=== PATIENT | female | born 1995 | race Caucasian/White ===

== ENCOUNTER 2019-08-19 13:29 | Emergency (ER) | payer MEDICAID, OTHER, SELFPAY ==
[~2019-08-19] VITALS: Ht 162.6 cm; Wt 102.7 kg
[2019-08-19] MEDS ORDERED: SODIUM CHLORIDE 0.9% 1,000 ML IV ONE (13:56)
[2019-08-19] MEDS ORDERED: SODIUM CHLORIDE FLUSH 10ML SYR IVF ONE (14:00)
[2019-08-19] MEDS ORDERED: ONDANSETRON 2MG/ML, 2ML IVPush ONE (14:00)
[2019-08-19] MEDS ORDERED: MAALOX/HYOSCYAMINE/LIDOCAINE 45 ML BTL PO ONE (14:00)
[2019-08-19] MEDS ORDERED: SODIUM CHLORIDE 0.9% 1,000ML IVBOLUS ONE (14:00)
[2019-08-19] MEDS ORDERED: ONDANSETRON 2MG/ML, 2ML ONE (14:09)
[2019-08-19] MEDS ORDERED: MAALOX/HYOSCYAMINE/LIDOCAINE 45 ML BTL ONE (14:09)
[2019-08-19 14:14] LABS: PH, VENOUS 7.383 pH (7.320-7.420)
[2019-08-19 14:17] LABS: BASOPHILS # (AUTO) 0.03 x10^3/uL (0-0.1); BASOPHILS % (AUTO) 0 % (0-1); EOSINOPHILS # (AUTO) 0.11 x10^3/uL (0-0.4); EOSINOPHILS % (AUTO) 1 % (1-7); LYMPHOCYTES # (AUTO) 1.65 x10^3/uL (1-3.4); LYMPHOCYTES % (AUTO) 16 % (22-44); MD NO; MEAN CORPUSCULAR HEMOGLOBIN 30.5 pg (27.0-34.8); MEAN CORPUSCULAR HGB CONC 33.5 g/dL (32.4-35.8); MEAN CORPUSCULAR VOLUME 91.3 fL (80-100); MEAN PLATELET VOLUME 7.8 fL (7.4-10.4); MONOCYTES # (AUTO) 0.43 x10^3/uL (0.2-0.8); MONOCYTES % (AUTO) 4 % (2-9); NEUTROPHILS # (AUTO) 8.17 x10^3/uL (1.8-6.8); NEUTROPHILS % (AUTO) 79 % (42-75); PLATELET COUNT 337 x10^3/uL (130-400); RED BLOOD COUNT 5.36 x10^6/uL (3.82-5.3); RED CELL DISTRIBUTION WIDTH 13.2 % (9.6-15.2)
[2019-08-19 14:26] LABS: ALBUMIN 3.7 g/dL (3.4-5.0); ANION GAP 14 mmol/L (5-15); CALCIUM 9.5 mg/dL (8.5-10.1); CHLORIDE 103 mmol/L (98-107)
[2019-08-19 14:32] LABS: ALANINE AMINOTRANSFERASE 17 U/L (12-78); ALKALINE PHOSPHATASE 103 U/L (45-117); CREATININE 1.26 mg/dL (0.55-1.02); TOTAL PROTEIN 7.9 g/dL (6.4-8.2)
[2019-08-19 14:35] LABS: MICROSCOPIC NOT IND
[2019-08-19 14:43] LABS: ACETONE, SERUM Large (80mg/dL) (Negative)
--- NOTE | 2019-08-19 15:16 | NUR ---
TASK RN NOTE: PT LAYING ON SIDE IN BED, NAD NOTED AT THIS TIME. RESPIRATIONS EVEN AND UNLABORED ON RA. IVF INFUSING. SIDE RAILS UP, CALL LIGHT IN REACH.
--- NOTE | 2019-08-19 17:35 | NUR ---
PT DROWSY, A&O4. BS 30. PROVIDER NOTIFIED. PT PROVIDED JUICE AND PB&J. PT SITTING UPRIGHT IN BED WATCHING TV. WILL RECHECK.
[2019-08-19 19:40] VITALS: BP 132/74
== END 2019-08-19 19:43 | disposition home or self-care (01) ==
LOC: ED 14:37
DX: K29.00 Acute gastritis without bleeding (principal); R11.2 Nausea with vomiting, unspecified; E86.0 Dehydration; R94.31 Abnormal electrocardiogram [ECG] [EKG]; E10.9 Type 1 diabetes mellitus without complications; E03.9 Hypothyroidism, unspecified
CPT/HCPCS: 36415; 80053; 81003; 82010; 82803; 82962; 83690; 84703; 85025; 93005; 96361; 96374; 99285; J2405; J7030